=== PATIENT | female | born 1990 | race Caucasian/White ===

== ENCOUNTER 2016-12-14 09:27 | Emergency (ER) | payer SELFPAY ==
[2016-12-14 09:27] VITALS: BMI 32.1
[2016-12-14 09:34] VITALS: BP 114/77; PULSE 74; RESP 18; TEMP 98.2; O2SAT 99
--- NOTE | 2016-12-14 10:12 | RAD ---
PROCEDURE: Right Foot Radiographs. HISTORY: r/o fx COMPARISON: None. FINDINGS: BONES: Normal. No fracture. JOINTS: Normal. SOFT TISSUES: Normal. OTHER FINDINGS: None. IMPRESSION: Normal right foot radiographs.
--- NOTE | 2016-12-14 10:12 | RAD ---
PROCEDURE: Right Ankle Radiographs. HISTORY: r/o fx COMPARISON: None FINDINGS: BONES: Normal. No fracture. JOINTS: Normal. No osteoarthritis. Ankle mortise maintained. Talar dome intact SOFT TISSUES: Normal. OTHER FINDINGS: None. IMPRESSION: Normal right ankle radiographs.
--- NOTE | 2016-12-14 12:08 | C.PDOC ---
History Of Present Illness 26 year old female presents to the ED with complaints of right ankle pain s/p accidentally twisting it while working today. Patient was able to ambulate with a limp and denies knee pain, fall, head injury, change in sensation, or any other complaints at this time. Chief Complaint (Nursing): Lower Extremity Problem/Injury History Per: Patient History/Exam Limitations: no limitations Onset/Duration Of Symptoms: Hrs Current Symptoms Are (Timing): Still Present Severity: Mild - Ankle/Foot Description Of Injury: Twisted Past Medical History Reviewed: Historical Data, Nursing Documentation, Vital Signs Vital Signs: Last Vital Signs Temp 98.2 F 12/14/16 09:32 Pulse 74 12/14/16 09:32 Resp 18 12/14/16 09:32 BP 114/77 12/14/16 09:32 Pulse Ox 99 12/14/16 12:12 - Medical History PMH: Anxiety, Depression Surgical History: Cholecystectomy (followed by revision) - [facility] Procedures DELIVERY OF PRODUCTS OF CONCEPTION, EXTERNAL APPROACH (07/21/16) DRAINAGE OF AMNIOTIC FL, THERAP FROM POC, VIA OPENING (07/21/16) INTRODUCE OF OTH THERAP SUBST INTO FEM REPROD, VIA OPENING (07/21/16) Family History: States: Unknown Family Hx - Social History Hx Tobacco Use: No Hx Alcohol Use: No Hx Substance Use: No - Immunization History Hx Tetanus Toxoid Vaccination: Yes Hx Influenza Vaccination: Yes Hx Pneumococcal Vaccination: Yes Review Of Systems Except As Marked, All Systems Reviewed And Found Negative. Constitutional: Negative for: Fever, Chills Musculoskeletal: Positive for: Other (+Right ankle pain). Negative for: Back Pain Neurological: Negative for: Weakness, Numbness Physical Exam - Physical Exam Appears: Non-toxic, No Acute Distress Skin: Normal Color, Warm, Dry Head: Atraumatic, Normacephalic Eye(s): bilateral: Normal Inspection Oral Mucosa: Moist Chest: Symmetrical Respiratory: No Accessory Muscle Use Extremity: Normal ROM, Tenderness (+Tenderness to the medial aspect of the right foot), No Calf Tenderness, Capillary Refill (< 2 seconds), No Deformity, Swelling (+Minimal swelling to the right ankle), No Other (No right fibula head tenderness) Pulses: Left Dorsalis Pedis: Normal, Right Dorsalis Pedis: Normal Neurological/Psych: Oriented x3, Normal Speech, Normal Cognition, Normal Motor, Normal Sensation ED Course And Treatment O2 Sat by Pulse Oximetry: 99 (Room air) Pulse Ox Interpretation: Normal Progress Note: Right Ankle X-ray and Right Foot X-ray ordered and reviewed. ADALGISA wrap applied. Patient advised ice and outpatient follow up. Disposition - Disposition Referrals: Claudia Neal, [Non-Staff] - Disposition: HOME/ ROUTINE Disposition Time: 10:10 Condition: GOOD Additional Instructions: Thank you for letting us take care of you today. Your provider was Dr. Bella. You were treated for ankle sprain. The emergency medical care you received today was directed at your acute symptoms. If you were prescribed any medication, please fill it and take as directed. It may take several days for your symptoms to resolve. Return to the Emergency Department if your symptoms worsen, do not improve, or if you have any other problems. Please contact your doctor or call one of the physicians/clinics you have been referred to that are listed on the Patient Visit Information form that is included in your discharge packet. Bring any paperwork you were given at discharge with you along with any medications you are taking to your follow up visit. Our treatment cannot replace ongoing medical care by a primary care provider (PCP) outside of the emergency department. Thank you for allowing the [facility] team to be part of your care today. Apply ice to the ankle for the next 2-3 days. Keep off your foot as much as possible to promote healing. Instructions: Ankle Sprain (ED) Forms: Work Excuse - Clinical Impression Clinical Impression: Sprain of ankle - Scribe Statement The provider has reviewed the documentation as recorded by the Scribe Jenny Coombs. Provider Attestation: All medical record entries made by the Filibertoibtrae were at my direction and personally dictated by me. I have reviewed the chart and agree that the record accurately reflects my personal performance of the history, physical exam, medical decision making, and the department course for this patient. I have also personally directed, reviewed, and agree with the discharge instructions and disposition.
== END 2016-12-14 10:49 | disposition home or self-care (01) ==
LOC: C.ER 09:27
DX: S93.401A Sprain of unspecified ligament of right ankle, initial encounter (principal); X50.9XXA Other and unspecified overexertion or strenuous movements or postures, initial encounter

== ENCOUNTER 2017-04-14 18:37 | Emergency (ER) | payer SELFPAY ==
[2017-04-14 18:38] VITALS: BMI 32.1
[2017-04-14 18:57] VITALS: RESP 18; TEMP 98.4
[2017-04-14 20:05] LABS: BASO % 0.5 % (0.0-2.0); EOS # 0.1 K/uL (0.0-0.7); EOS % 1.5 % (0.0-4.0); HEMATOCRIT 37.4 % (34.0-47.0); LYMPH # 1.8 K/uL (1.0-4.3); LYMPH % 21.9 % (20.0-40.0); MEAN CELL VOLUME 83.6 fL (81.0-99.0); MEAN CORPUSCULAR HEMOGLOBIN 27.9 pg (27.0-31.0); MEAN CORPUSCULAR HGB CONC 33.4 g/dL (33.0-37.0); MEAN PLATELET VOLUME 9.2 fL (7.2-11.7); MONO # 0.7 K/uL (0.0-0.8); MONO % 7.9 % (0.0-10.0); RED CELL DISTRIBUTION WIDTH 13.3 % (11.5-14.5); WHITE BLOOD COUNT 8.3 K/uL (4.8-10.8)
[2017-04-14 21:31] LABS: CHLORIDE 102 mmol/L (98-107)
[2017-04-14 21:32] LABS: POTASSIUM 3.4 mmol/L (3.6-5.2); SODIUM 137 mmol/L (132-148)
[2017-04-14 21:34] LABS: ALB/GLOB RATIO 1.1 (1.0-2.1); ALKALINE PHOSPHATASE 67 U/L (38-126); ALT/SGPT 27 U/L (9-52); AST/SGOT 22 U/L (14-36); BILIRUBIN,TOTAL 0.5 mg/dL (0.2-1.3); BLOOD UREA NITROGEN 12 mg/dL (7-17); CARBON DIOXIDE 24 mmol/L (22-30); GFR AFRICAN-AMERICAN > 60; TOTAL PROTEIN 7.3 g/dL (6.3-8.3)
[2017-04-14 21:35] LABS: CALCIUM 9.5 mg/dl (8.6-10.4); GLUCOSE,RANDOM 101 mg/dL (65-105)
[2017-04-14 23:22] VITALS: BP 107/73; PULSE 77; O2SAT 99
--- NOTE | 2017-04-15 00:05 | C.PDOC ---
History Of Present Illness 26 y/o female presents to the ED for evaluation of left lateral rib pain which began yesterday. Patient states her symptoms are exacerbated with movement of her left arm as well as with taking a deep breath. Patient also reports chronic left leg pain which has been ongoing for "months." She denies fever, chills, shortness of breath, abdominal pain, nausea, vomiting, recent injury/trauma to the affected area. Time Seen by Provider: 04/14/17 19:48 Chief Complaint (Nursing): Chest Pain History Per: Patient History/Exam Limitations: no limitations Onset/Duration Of Symptoms: Hrs Current Symptoms Are (Timing): Still Present Quality: "Pain" Associated Symptoms: denies: Nausea, Dyspnea, Diaphoresis, Syncope Exacerbating Factors: Movement (left arm), Deep Breathing Additional History Per: Patient Past Medical History Reviewed: Historical Data, Nursing Documentation, Vital Signs Vital Signs: Last Vital Signs Temp 98.4 F 04/14/17 23:21 Pulse 77 04/14/17 23:21 Resp 18 04/14/17 23:21 BP 107/73 04/14/17 23:21 Pulse Ox 99 04/15/17 00:09 - Medical History PMH: Anxiety, Depression Surgical History: Cholecystectomy (followed by revision) - [facility] Procedures DELIVERY OF PRODUCTS OF CONCEPTION, EXTERNAL APPROACH (07/21/16) DRAINAGE OF AMNIOTIC FL, THERAP FROM POC, VIA OPENING (07/21/16) INTRODUCE OF OTH THERAP SUBST INTO FEM REPROD, VIA OPENING (07/21/16) Family History: States: Unknown Family Hx - Social History Hx Tobacco Use: No Hx Alcohol Use: No Hx Substance Use: No - Immunization History Hx Tetanus Toxoid Vaccination: Yes Hx Influenza Vaccination: Yes Hx Pneumococcal Vaccination: Yes Review Of Systems Constitutional: Negative for: Fever, Chills Respiratory: Negative for: Shortness of Breath Gastrointestinal: Negative for: Nausea, Vomiting, Abdominal Pain Musculoskeletal: Positive for: Leg Pain (left), Other (+left lateral rib pain ) Physical Exam - Physical Exam Appears: Non-toxic, No Acute Distress Skin: Normal Color, Warm, Dry Head: Atraumatic, Normacephalic Eye(s): bilateral: Normal Inspection Oral Mucosa: Moist Neck: Supple Chest: Tenderness (point tenderness to anterolateral rib cage on palpation ) Cardiovascular: Rhythm Regular, No Murmur Respiratory: Normal Breath Sounds, No Rales, No Rhonchi, No Wheezing Gastrointestinal/Abdominal: Soft, No Tenderness, No Guarding, No Rebound Back: Normal Inspection, No Vertebral Tenderness, No Paraspinal Tenderness Extremity: Normal ROM, No Tenderness, No Calf Tenderness, Capillary Refill ( less than 2 seconds ), No Deformity, Other (tortuous superficial veins to left lower extremity. no warmth ) Neurological/Psych: Normal Speech, Normal Cognition Gait: Steady ED Course And Treatment - Laboratory Results Result Diagrams: 04/14/17 19:57 04/14/17 21:14 ECG: Interpreted By Me, Viewed By Me ECG Rhythm: Sinus Rhythm Interpretation Of ECG: Normal Sinus Rhythm ar rate 69bpm. Normal intervals. Rate From EC O2 Sat by Pulse Oximetry: 99 (on RA) Pulse Ox Interpretation: Normal Progress Note: labs, EKG, and CXR ordered and reviewed. Disposition - Disposition Referrals: [facility] Lucy Neal, [Non-Staff] - Disposition: HOME/ ROUTINE Disposition Time: 21:40 Condition: GOOD Additional Instructions: Thank you for letting us take care of you today. Your provider was Dr. Bella. You were treated for costochondritis. The emergency medical care you received today was directed at your acute symptoms. If you were prescribed any medication, please fill it and take as directed. It may take several days for your symptoms to resolve. Return to the Emergency Department if your symptoms worsen, do not improve, or if you have any other problems. Please contact your doctor or call one of the physicians/clinics you have been referred to that are listed on the Patient Visit Information form that is included in your discharge packet. Bring any paperwork you were given at discharge with you along with any medications you are taking to your follow up visit. Our treatment cannot replace ongoing medical care by a primary care provider (PCP) outside of the emergency department. Thank you for allowing the [facility] team to be part of your care today. Follow up with your doctor in 2-3 days for re-evaluation and further management. Prescriptions: Cyclobenzaprine [Cyclobenzaprine HCl] 10 mg PO Q8 PRN #20 tab PRN Reason: Muscle Spasm Instructions: Costochondritis (ED) Forms: [facility] (Solomon Islander), Work Excuse - Clinical Impression Clinical Impression: Chest discomfort - Scribe Statement The provider has reviewed the documentation as recorded by the Scribe (Cat Richards) Provider Attestation: All medical record entries made by the [place] were at my direction and personally dictated by me. I have reviewed the chart and agree that the record accurately reflects my personal performance of the history, physical exam, medical decision making, and the department course for this patient. I have also personally directed, reviewed, and agree with the discharge instructions and disposition.
--- NOTE | 2017-04-15 06:39 | RAD ---
PROCEDURE: CHEST RADIOGRAPH, 1 VIEW HISTORY: chest pain COMPARISON: None available. FINDINGS: LUNGS: Clear. PLEURA: No pneumothorax or pleural fluid seen. CARDIOVASCULAR: Normal. OSSEOUS STRUCTURES: No significant abnormalities. VISUALIZED UPPER ABDOMEN: Normal. OTHER FINDINGS: None. IMPRESSION: No active disease.
--- NOTE | 2017-04-17 20:43 | CARD ---
APPROVED REPORT EKG Measurement Heart [id number] <Conclusion> Normal sinus rhythm Normal ECG
== END 2017-04-14 22:15 | disposition home or self-care (01) ==
LOC: C.ER 18:37
DX: R07.89 Other chest pain (principal)

== ENCOUNTER 2017-05-22 12:49 | Emergency (ER) | payer SELFPAY ==
[2017-05-22 12:49] VITALS: BMI 32.1
[2017-05-22 13:17] VITALS: BP 94/60; PULSE 75; RESP 16; TEMP 97.9; O2SAT 99
--- NOTE | 2017-05-22 13:24 | C.PDOC ---
History Of Present Illness 26 year old female with history of intermittent lower back pain presents to the ED with complaints of worsening back pain exacerbated by movement for two days. Patient notes new onset of radiation to left buttock that begins in right back. She denies improvement with Advill 400 mg at 0500. Patient denies trauma, dysuria, incontinence, or other associated symptoms. WORSENING BACK PAIN X 2 DAYS. HO INTERMIT LBP BUT NOW NEW ONSET RADIATION L BUTTOCK. STARTS R BACK RADIATION L BACK/BUTTOCK. WORSE W MOVEMENT. NO IMPROVE W ADVIL 400 MG @ 0500. DENIES OTHER ASSOC SX. NO TRAUMA EXAM MILD DIST NONTOXIC BACK +LIMITED ROM DUE TO PAIN. NO FOCAL TEND. NEURO INTACT REMAINDER NEG MDM PAIN RX, ADVISED NEED FOR PMD OR SPECIALIST FU, OUTPT MRI PRN Time Seen by Provider: 05/22/17 13:17 Chief Complaint (Nursing): Back Pain History Per: Patient History/Exam Limitations: no limitations Onset/Duration Of Symptoms: Days (2 days ), Sudden Onset (radiation to left buttock ) Current Symptoms Are (Timing): Still Present Quality Of Discomfort: "Pain" Previous Symptoms: Back Pain (history of intermittent lower back pain ) Associated Symptoms: None Exacerbating Factor(s): Movement Recent travel outside of the [place]: No Past Medical History Reviewed: Historical Data, Nursing Documentation, Vital Signs Vital Signs: Last Vital Signs Temp 97.9 F 05/22/17 13:13 Pulse 75 05/22/17 13:13 Resp 16 05/22/17 13:13 BP 94/60 L 05/22/17 13:13 Pulse Ox 99 05/22/17 13:40 - Medical History PMH: Anxiety, Depression Surgical History: Cholecystectomy (followed by revision) - [facility] Procedures DELIVERY OF PRODUCTS OF CONCEPTION, EXTERNAL APPROACH (07/21/16) DRAINAGE OF AMNIOTIC FL, THERAP FROM POC, VIA OPENING (07/21/16) INTRODUCE OF OTH THERAP SUBST INTO FEM REPROD, VIA OPENING (07/21/16) Family History: States: Unknown Family Hx - Social History Hx Tobacco Use: No Hx Alcohol Use: No Hx Substance Use: No - Immunization History Hx Tetanus Toxoid Vaccination: Yes Hx Influenza Vaccination: No Hx Pneumococcal Vaccination: Yes Review Of Systems Constitutional: Negative for: Fever, Chills Cardiovascular: Negative for: Chest Pain, Palpitations Respiratory: Negative for: Cough, Shortness of Breath Gastrointestinal: Negative for: Nausea, Vomiting Genitourinary: Negative for: Dysuria, Incontinence Musculoskeletal: Positive for: Back Pain Physical Exam - Physical Exam Appears: Non-toxic, In Acute Distress (mild distress ) Skin: Warm, Dry Head: Atraumatic, Normacephalic Eye(s): bilateral: Normal Inspection Neck: Normal ROM, Supple Chest: Symmetrical, No Deformity Cardiovascular: Rhythm Regular, No Murmur Respiratory: Normal Breath Sounds, No Rales, No Rhonchi, No Wheezing Back: Decreased ROM (limited ROM, secondary to pain ), Other (No focal tenderness ) Extremity: Normal ROM, No Tenderness Neurological/Psych: Oriented x3 ED Course And Treatment O2 Sat by Pulse Oximetry: 99 (room air ) Progress Note: Patient was given Tylenol, Percocet, and Lidoderm was applied. Medical Decision Making Medical Decision Making: Pain medication was prescribed and advised of need for follow up with PMD or specialist. Outpatient MRI PRN. Disposition Counseled Patient/Family Regarding: Studies Performed, Diagnosis, Need For Followup, Rx Given - Disposition Referrals: [facility] [Outside] [facility] [Outside] Disposition: HOME/ ROUTINE Disposition Time: 13:38 Condition: IMPROVED Additional Instructions: REMOVE PATCH 12 HOURS AFTER INITIAL APPLICATION. Prescriptions: Acetaminophen [Tylenol 325mg tab] 650 mg PO Q4 #30 tab Acetaminophen/Cod NO 4 [Tylenol/Cod 300 mg-60 mg] 1 tab PO Q4 PRN #20 tab PRN Reason: Pain, Moderate (4-7) Cyclobenzaprine [Flexeril] 10 mg PO TID #15 tab Dexamethasone 12 mg PO ONCE #2 tablet Lidocaine 5% [Lidoderm] 1 ea TD PRN PRN #10 patch PRN Reason: Pain, Moderate (4-7) Instructions: Sciatica (ED) Forms: [facility] (Chadian), Work Excuse - Clinical Impression Clinical Impression: Sciatica - Scribe Statement The provider has reviewed the documentation as recorded by the Scribe Julienne Pugh All medical record entries made by the Scribe were at my direction and personally dictated by me. I have reviewed the chart and agree that the record accurately reflects my personal performance of the history, physical exam, medical decision making, and the department course for this patient. I have also personally directed, reviewed, and agree with the discharge instructions and disposition.
[2017-05-22] MEDS ORDERED: Lidocaine 5% Patch TD STA (13:40)
[2017-05-22] MEDS ORDERED: Oxycodone/Acetaminophen 5/325 mg Tab PO STA (13:40)
[2017-05-22] MEDS ORDERED: Lidocaine 5% Patch TD ONE (13:44)
[2017-05-22] MEDS ORDERED: Oxycodone/Acetaminophen 5/325 mg Tab ONE (13:44)
== END 2017-05-22 14:08 | disposition home or self-care (01) ==
LOC: C.ER 12:49
DX: M54.30 Sciatica, unspecified side (principal)

== ENCOUNTER 2017-10-17 06:27 | Day surgery (SDC) | payer OTHER ==
[2017-10-17 06:58] VITALS: BMI 32.9
[2017-10-17 07:28] VITALS: O2SAT 100
[2017-10-17] MEDS ORDERED: Propofol 10 mg/ml Inj (20 ML) ONE (08:12)
[2017-10-17] MEDS ORDERED: Lidocaine Hydrochloride 5 ML INJ ONE (08:13)
[2017-10-17] MEDS ORDERED: Lactated Ringer's 1,000 ML IV ONE (08:18)
--- NOTE | 2017-10-17 08:19 | CP.SDSHP ---
Same Day Surgery H & P - History Proposed Procedure: colonoscopy Pre-Op Diagnosis: rectal bleeding. LLQ pain - Previous Medical/Surgical History Neuro: Backaches Previous Surgical History: Lap Kelsey. Ovarian cystectomy x 2 - Allergies Allergies: Allergies naproxen Allergy (Intermediate, Verified 10/17/17 06:58) URTICARIA - Physical Exam Vital Signs: Vital Signs 10/17/17 07:16 Temperature 97.6 F Pulse Rate 80 Respiratory 20 Rate Blood Pressure 107/74 O2 Sat by Pulse 100 Oximetry Mental Status: Alert & Oriented x3 Neuro: WNL Heart: WNL Lungs: WNL GI: WNL - Impression Impression: rectal bleeding. LLQ pain - Date & Time Date: 10/17/17 Time: 08:19 Short Stay Discharge - Short Stay Discharge Admitting Diagnosis/Reason for Visit: GASTROINTESTINAL HEM, LEFT LOWER QUAD, CHANGE IN B Disposition: HOME/ ROUTINE
[2017-10-17 08:51] VITALS: TEMP 97.5
[2017-10-17] MEDS ORDERED: Lactated Ringer's 1,000 ML IV SCH (09:00)
[2017-10-17 09:35] VITALS: BP 101/67; PULSE 68; RESP 17
== END 2017-10-17 09:32 | disposition home or self-care (01) ==
LOC: C.ENDO 06:27
PROVIDERS: ATTEND Internal Medicine Gastroenterology
DX: K62.5 Hemorrhage of anus and rectum (principal); R19.4 Change in bowel habit; R10.32 Left lower quadrant pain; K64.8 Other hemorrhoids; K52.9 Noninfective gastroenteritis and colitis, unspecified
CPT/HCPCS: 45378; 84703; 88305; J2704; J7120

== ENCOUNTER 2018-08-23 10:13 | Day surgery (SDC) | payer OTHER ==
[2018-08-21 12:48] VITALS: BMI 30.2
[2018-08-23] MEDS ORDERED: Midazolam 2 MG/2 ML VIAL ONE (11:03)
[2018-08-23] MEDS ORDERED: Propofol 10 mg/ml Inj (20 ML) ONE (11:03)
[2018-08-23] MEDS ORDERED: ceFAZolin 1 gm in NS 1 GM/100 ML BAG IVPB ONE (11:12)
[2018-08-23] MEDS ORDERED: ePHEDrine 50 mg/ml Inj ONE (11:44)
[2018-08-23 12:27] VITALS: O2SAT 100
[2018-08-23] MEDS: HYDROmorphone 0.5 mg/0.5 ml ISec IVP PRN ×2 (12:29→12:55)
[2018-08-23 13:47] VITALS: RESP 18
[2018-08-23] MEDS ORDERED: Oxycodone/Acetaminophen 5/325 mg Tab ONE (14:21)
[2018-08-23] MEDS ORDERED: Oxycodone/Acetaminophen 5/325 mg Tab PO STA ×2 (14:22→14:36)
[2018-08-23 14:30] VITALS: BP 112/64; PULSE 78; TEMP 97.6
--- NOTE | 2018-08-24 02:25 | OP ---
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 PREOPERATIVE DIAGNOSIS: Varicose veins and hemangiomas of the left lower extremities with phlebitis. DESCRIPTION OF PROCEDURE: Excision of varicose veins, phlebitis left lower extremity of the knee and leg area. SURGEON: Kevan Noriega MD ANESTHESIA: General. ESTIMATED BLOOD LOSS: 100 mL. POSTOPERATIVE CONDITION: Stable. DESCRIPTION OF PROCEDURE: The patient was taken to the operating room, general anesthesia was administered and the left leg was prepped and draped. Serial incisions were made over a pre-marked phlebitic vein in the knee area and it was excised via stab phlebectomy. Bleeding was controlled using the Bovie. The skin was closed with simple sutures. The patient was then turned in the prone position. The posterior phlebitic vein was then excised utilizing elliptical incision, irrigated with saline, and closed with subcuticular Monocryl and glue. The patient tolerated procedure well and returned to recovery room in stable condition. Kevan Noriega MD
== END 2018-08-23 15:09 | disposition home or self-care (01) ==
LOC: C.SDS 10:13
PROVIDERS: ATTEND Surgery
DX: I83.12 Varicose veins of left lower extremity with inflammation (principal); D18.09 Hemangioma of other sites
CPT/HCPCS: 37765; 88304; J0690; J1170; J2250; J2405; J2704; J3010

== ENCOUNTER 2019-01-04 19:39 | Emergency (ER) | payer OTHER ==
[2019-01-04 19:39] VITALS: BMI 30.2
[2019-01-04 20:10] VITALS: RESP 20; O2SAT 100
[2019-01-04 20:42] LABS: SQUAMOUS EPITHIAL 1 /hpf (0-5); URINE BACTERIA FEW (<OCC); URINE BILIRUBIN NEGATIVE (NEGATIVE); URINE BLOOD NEGATIVE (NEGATIVE); URINE CLARITY Hazy (Clear); URINE COLOR Yellow (YELLOW); URINE GLUCOSE (UA) NORMAL (Normal); URINE LEUKOCYTE ESTERASE NEG Leu/uL (Negative); URINE PROTEIN NEGATIVE (NEGATIVE); URINE UROBILINOGEN NORMAL mg/dL (0.2-1.0)
--- NOTE | 2019-01-04 22:00 | C.PDOC ---
History Of Present Illness Patient is a 28 year old female, 20 weeks , who presents to the ED c/o poor appetite for the past 2 days and states that she has not felt movement. She states that she has not felt movement at all throughout this . She was referred by her OBGYN Dr. Luz for evaluation. Patient has had previous normal US of . She denies any pelvic pain, vaginal discharge or vaginal bleeding. Time Seen by Provider: 01/04/19 20:17 Chief Complaint (Nursing): Female Genitourinary History Per: Patient History/Exam Limitations: no limitations Onset/Duration Of Symptoms: Days (2) Current Symptoms Are (Timing): Still Present Associated Symptoms: denies: Urinary Symptoms Recent travel outside of the [place]: No Additional History Per: Patient Abnormal Vaginal Bleeding: No Past Medical History Reviewed: Historical Data, Nursing Documentation, Vital Signs Vital Signs: Last Vital Signs Temp 98.1 F 01/04/19 20:05 Pulse 92 H 01/04/19 20:05 Resp 20 01/04/19 20:05 BP 102/68 01/04/19 20:05 Pulse Ox 100 01/04/19 20:05 Primary Care Provider: Christiano Grijalva - Medical History PMH: Anxiety, Depression, Gall Bladder Disease Denies: Asthma, Colonic Polyps, Fractures, HIV, HTN, Chronic Kidney Disease, Seizures, Sexually Transmitted Disease, Sleep Apnea, TIA Surgical History: Cholecystectomy Denies: Endoscopy - [facility] Procedures DELIVERY OF PRODUCTS OF CONCEPTION, EXTERNAL APPROACH (07/21/16) DRAINAGE OF AMNIOTIC FL, THERAP FROM POC, VIA OPENING (07/21/16) INTRODUCE OF OTH THERAP SUBST INTO FEM REPROD, VIA OPENING (07/21/16) Family History: States: Unknown Family Hx - Social History Hx Tobacco Use: No Hx Alcohol Use: No Hx Substance Use: No - Immunization History Hx Tetanus Toxoid Vaccination: Yes Hx Influenza Vaccination: No Hx Pneumococcal Vaccination: Yes Review Of Systems Constitutional: Positive for: Other (poor appetite) Genitourinary: Negative for: Vaginal Discharge, Vaginal Bleeding, Pelvic Pain Physical Exam - Physical Exam Appears: Non-toxic, No Acute Distress, Other (obese white female ) Skin: Normal Color, Warm, Dry Head: Atraumatic, Normacephalic Oral Mucosa: Moist Neck: Normal ROM, Supple Chest: Symmetrical Cardiovascular: Rhythm Regular, No Murmur Respiratory: Normal Breath Sounds, No Rales, No Rhonchi, No Wheezing Gastrointestinal/Abdominal: Soft, No Tenderness, No Distention, Other (abdomen obese consistent with 20 week ) Extremity: Normal ROM Neurological/Psych: Oriented x3 ED Course And Treatment - Laboratory Results Lab Results: Urine Color Yellow (YELLOW) 01/04/19 20:26 Urine Clarity Hazy (Clear) 01/04/19 20:26 Urine pH 5.0 (5.0-8.0) 01/04/19 20:26 Ur Specific [place] 1.025 (1.003-1.030) 01/04/19 20:26 Urine Protein Negative mg/dL (NEGATIVE) 01/04/19 20:26 Urine Glucose (UA) Normal mg/dL (Normal) 01/04/19 20:26 Urine Ketones Negative mg/dL (NEGATIVE) 01/04/19 20:26 Urine Blood Negative (NEGATIVE) 01/04/19 20:26 Urine Nitrate Negative (NEGATIVE) 01/04/19 20:26 Urine Bilirubin Negative (NEGATIVE) 01/04/19 20:26 Urine Urobilinogen Normal mg/dL (0.2-1.0) 01/04/19 20:26 Ur Leukocyte Esterase Neg Luna/uL (Negative) 01/04/19 20:26 Urine WBC (Auto) 5 /hpf (0-5) 01/04/19 20:26 Urine RBC (Auto) 1 /hpf (0-3) 01/04/19 20:26 Ur Squamous Epith Cells 1 /hpf (0-5) 01/04/19 20:26 Urine Bacteria Few (<OCC) H 01/04/19 20:26 Lab Interpretation: Normal (UA normal) O2 Sat by Pulse Oximetry: 100 (on RA) Pulse Ox Interpretation: Normal Medical Decision Making Medical Decision Making: Plan: US OB UA normal IUP with FHT [id number] Disposition Doctor Will See Patient In The: Office Counseled Patient/Family Regarding: Studies Performed, Diagnosis - Disposition Referrals: Norberto Luz DO [Staff Provider] - Disposition: HOME/ ROUTINE Disposition Time: 21:59 Condition: GOOD Additional Instructions: continue normal care Instructions: - The Sixth Month Forms: [employer] (Nigerian) - Clinical Impression Clinical Impression: - Scribe Statement The provider has reviewed the documentation as recorded by the Scribe Sheryl Pych All medical record entries made by the [place] were at my direction and personally dictated by me. I have reviewed the chart and agree that the record accurately reflects my personal performance of the history, physical exam, medical decision making, and the department course for this patient. I have also personally directed, reviewed, and agree with the discharge instructions and disposition.
[2019-01-04 22:08] VITALS: BP 111/72; PULSE 79; TEMP 98
--- NOTE | 2019-01-05 11:09 | US ---
Date of service: 01/04/2019 PROCEDURE: OB Pelvic Ultrasound HISTORY: heart sound LMP: 08/23/2018 COMPARISON: None available. FINDINGS: UTERUS: Gestational sac: Single intrauterine gestation. Heart rate: 140 bpm. age (Ultrasound estimated): 19 weeks 4 days +/-1 week 3 days Lexie-gestational hemorrhage: None. Date of delivery (Ultrasound estimated) : 05/27/2019 Placenta seen at the anterior wall. The amount of amniotic fluid is adequate. CERVIX: Measures 4 cm. Long and closed. No cervical abnormality seen. RIGHT OVARY: Not visualized LEFT OVARY: Not visualized FREE FLUID: None. OTHER FINDINGS: None. IMPRESSION: Single intrauterine live with ultrasound estimated gestational age of 19 weeks 4 days +/-1 week 3 days. Estimated date of delivery by ultrasound is 05/27/2019. No definite evidence of acute pathology. Preliminary report was submitted by [facility] Radiology contains concordant findings.
== END 2019-01-04 22:10 | disposition home or self-care (01) ==
LOC: C.ER 19:39
DX: O26.892 Other specified pregnancy related conditions, second trimester (principal); Z3A.20 20 weeks gestation of pregnancy